=== PATIENT | male | born 1970 | race Caucasian/White ===

== ENCOUNTER 2020-12-10 13:19 | Emergency (ER) | payer OTHER ==
[~2020-12-10] VITALS: Ht 185.4 cm; Wt 115.0 kg
[2020-12-10] MEDS ORDERED: normal saline 1000ML IV soln IVB ONE (15:20)
[2020-12-10] MEDS ORDERED: pantoprazole 40 MG vial IV ONE (15:20)
[2020-12-10] MEDS ORDERED: ondansetron/PF 4mg/2ml inj IV ONE (15:20)
[2020-12-10 15:50] LABS: EOSINOPHILS % (AUTO) 0.1 % (0-6); HEMOGLOBIN 15.8 g/dl (14.0-17.9); NEUTROPHILS # (AUTO) 10.1 X10'3 (1.8-7.7)
[2020-12-10 15:53] LABS: BASOPHILS % (AUTO) 0.3 % (0-1); HEMATOCRIT 46.5 % (42.0-52.0); LYMPHOCYTES # (AUTO) 1.2 X10'3 (1.1-4.8); LYMPHOCYTES % (AUTO) 9.7 % (21-51); MEAN CORPUSCULAR HEMOGLOBIN 30.9 PG (27.0-31.0); MEAN CORPUSCULAR VOLUME 90.9 FL (78-98); MEAN PLATELET VOLUME 7.4 FL (7.4-10.4); MONOCYTES % (AUTO) 8.2 % (2-12); NEUTROPHILS % (AUTO) 81.7 % (42-75); PLATELET COUNT 212 X10'3 (140-440); RED BLOOD COUNT 5.12 X10'6 (4.70-6.10); RED CELL DISTRIBUTION WIDTH 13.3 % (11.5-14.5); WHITE BLOOD COUNT 12.4 X10'3 (4.5-11.0)
[2020-12-10 16:17] LABS: ALANINE AMINOTRANSFERASE 19 U/L (12-78); ALBUMIN 3.7 G/DL (3.4-5.0); ALBUMIN/GLOBULIN RATIO 0.9 (1.1-1.5); ALKALINE PHOSPHATASE 50 IU/L (46-116); ANION GAP 10 (8-16); ASPARTATE AMINO TRANSFERASE 24 U/L (10-37); BILIRUBIN,TOTAL 1.6 MG/DL (0.1-1.0); BLOOD UREA NITROGEN 14 MG/DL (7-18); BUN/CREATININE RATIO 14.1 (5.4-32.0); CALCIUM 8.2 MG/DL (8.5-10.1); CHLORIDE 104 MMOL/L (99-107); CREATININE 0.99 MG/DL (0.60-1.10); GLUCOSE 103 MG/DL (70-104); POTASSIUM 3.3 MMOL/L (3.5-5.1); SODIUM 140 MMOL/L (135-145); TOTAL CARBON DIOXIDE 26.5 MMOL/L (24-32); TOTAL PROTEIN 7.7 G/DL (6.4-8.2); eGFR 79 ML/MIN
[2020-12-10] MEDS ORDERED: potassium Cl 20 mEq SR tablet PO ONE (16:25)
[2020-12-10 16:29] VITALS: BP 134/66
== END 2020-12-10 17:00 | disposition home or self-care (01) ==
LOC: ER 13:20
DX: T67.5XXA Heat exhaustion, unspecified, initial encounter (principal); L55.9 Sunburn, unspecified; I10 Essential (primary) hypertension; F17.200 Nicotine dependence, unspecified, uncomplicated; F12.90 Cannabis use, unspecified, uncomplicated; Z72.89 Other problems related to lifestyle; X32.XXXA Exposure to sunlight, initial encounter; Y93.89 Activity, other specified; Y92.814 Boat as the place of occurrence of the external cause; Y99.8 Other external cause status
CPT/HCPCS: 80053; 84484; 85025; 93005; 96361; 96374; 96375; 99284; C9113; J2405; J7030